=== PATIENT | female | born 1995 | race African-American/Black ===

== ENCOUNTER → 2020-08-02 | Outpatient (CLI) | payer SELFPAY | LOC: M LABSMTC 11:50 | PROVIDERS: ATTEND Pediatrics | DX: Z20.822 Contact with and (suspected) exposure to COVID-19 (principal) ==

== ENCOUNTER → 2020-08-20 | Outpatient (CLI) | payer SELFPAY | LOC: EDSEX → M LABSMTC 13:33 | PROVIDERS: ATTEND Pediatrics | DX: Z20.822 Contact with and (suspected) exposure to COVID-19 (principal) ==

== ENCOUNTER → 2020-09-06 | Outpatient (CLI) | payer SELFPAY | LOC: EDSEX 10:07 → M LABSMTC 10:07 | PROVIDERS: ATTEND Pediatrics | DX: Z20.822 Contact with and (suspected) exposure to COVID-19 (principal) ==

== ENCOUNTER → 2020-09-11 | Outpatient (CLI) | payer SELFPAY | LOC: M LABSMTC 11:07 | PROVIDERS: ATTEND Pediatrics | DX: Z20.822 Contact with and (suspected) exposure to COVID-19 (principal) ==

== ENCOUNTER 2020-11-11 09:42 | Emergency (ER) | payer OTHER, SELFPAY ==
[~2020-11-11] VITALS: Ht 177.8 cm; Wt 88.2 kg
[2020-11-11] MEDS ORDERED: NS 1,000 ML IV ONE ×2 (12:05→13:50)
[2020-11-11 12:34] LABS: BASO % 0.3 % (0.0-1.0); EOS # 0.3 10^3/uL (0.0-0.5); HEMATOCRIT 49.3 % (42.0-52.0); HEMOGLOBIN 15.5 g/dl (13.5-17.5); LYMPH # 1.4 10^3/uL (1.5-5.0); LYMPH % 23.2 % (24.0-44.0); MEAN CORPUSCULAR HEMOGLOBIN 26.6 pg (27.0-33.0); MEAN CORPUSCULAR HGB CONC 31.4 g/dl (32.0-36.5); MEAN CORPUSCULAR VOLUME 84.6 fl (80.0-96.0); MONO # 0.7 10^3/uL (0.0-0.8); MONO % 11.4 % (2.0-8.0); NEUTROPHILS # 3.6 10^3/uL (1.5-8.5); NEUTROPHILS % 59.8 % (36.0-66.0); PLATELET COUNT, AUTOMATED 404 10^3/uL (150-450); RED BLOOD COUNT 5.83 10^6/uL (4.30-6.10)
[2020-11-11 13:12] LABS: ALBUMIN 4.4 GM/DL (3.2-5.2); ALT/SGPT 78 U/L (12-78); AMYLASE 46 U/L (25-115); BILIRUBIN,DIRECT 0.3 MG/DL (0.0-0.2); BILIRUBIN,TOTAL 1.2 MG/DL (0.2-1.0); BLOOD UREA NITROGEN 22 MG/DL (7-18); CALCIUM LEVEL 10.2 MG/DL (8.5-10.1); CARBON DIOXIDE LEVEL 29 MEQ/L (21-32); CHLORIDE LEVEL 103 MEQ/L (98-107); CK-MB VALUE MASS 1.4 NG/ML (<3.6); CPK CREATINE PHOSPHOKINASE 2161 U/L (39-308); CREATININE FOR GFR 1.53 MG/DL (0.70-1.30); GLOMERULAR FILTRATION RATE > 60.0 (>60); GLUCOSE, FASTING 76 MG/DL (70-100); LIPASE 58 U/L (73-393); MB/CK RELATIVE INDEX 0.06 (< OR =4); POTASSIUM SERUM 4.3 MEQ/L (3.5-5.1); SODIUM LEVEL 138 MEQ/L (136-145); TOTAL PROTEIN 8.2 GM/DL (6.4-8.2); TROPONIN I < 0.02 NG/ML (< 0.10)
--- NOTE | 2020-11-11 13:13 | REP ---
INDICATION: RUQ pain, diarrhea. COMPARISON: None. TECHNIQUE: Right upper quadrant sonography. FINDINGS: Scanning through the right upper quadrant of the abdomen demonstrates a normal sized, thin-walled gallbladder without evidence of stone or polyp. Common bile duct is normal measuring 0.5 cm in greatest diameter. Liver size is normal. No pancreatic abnormality is observed. No right renal abnormality is seen. There is no evidence of ascites. The right kidney measures 10.5 x 4.7 x 4.9 cm. There is an echogenic focus in the right lobe of the liver consistent with hemangioma 8 mm in greatest diameter. IMPRESSION: 8 mm hemangioma in the liver. Otherwise negative right upper quadrant sonography.. <Electronically signed by Mariusz Ortega > 11/11/20 [id number]
[2020-11-11] MEDS ORDERED: ISOVUE-370 76% 100ML VIAL As Ordered ONE (13:15)
--- NOTE | 2020-11-11 13:45 | REP ---
INDICATION: diarrhea, diffuse TTP. COMPARISON: None. TECHNIQUE: Helical scanning is acquired and 3 mm axial images re-formatted. Coronal and sagittal MPR images are generated. The CT contrast enhancement dose is 100 mL of intravenous Isovue 370. FINDINGS: Preliminary digital land leasing examiner radiograph is unremarkable. The lung bases are clear. The liver and the spleen are normal in size homogeneous in texture. No adrenal lesion is seen. Pancreas is unremarkable. No abnormality is noted in the gallbladder. The kidneys enhance symmetrically and are morphologically intact. No retroperitoneal mass or adenopathy is observed. A normal appendix is seen in the right lower quadrant. There is fluid content in normal caliber small bowel loops and throughout the large bowel consistent with enteritis. No obstructive lesion is seen. No abdominal wall defect is observed. No pelvic mass or adenopathy is seen. Urinary bladder, seminal vesicles, and prostate are unremarkable. Bone window settings show no bony destructive lesion. IMPRESSION: Question mild enteritis pattern. No evidence of obstruction. Otherwise negative CT study abdomen and pelvis. <Electronically signed by Mariusz Ortega > 11/11/20 [id number]
[2020-11-11 15:40] VITALS: BP 144/75
== END 2020-11-11 15:42 | disposition home or self-care (01) ==
LOC: M ED 09:42
DX: A08.4 Viral intestinal infection, unspecified (principal); B34.8 Other viral infections of unspecified site; G89.29 Other chronic pain; M54.5 Low back pain
CPT/HCPCS: 74177; 76705; 80048; 80076; 82150; 82550; 82553; 83690; 84484; 85025; 87505; 96360; 96361; 99284; Q9967

== ENCOUNTER 2021-06-01 10:08 | Emergency (ER) | payer OTHER ==
[~2021-06-01] VITALS: Ht 177.8 cm; Wt 90.4 kg
--- OUTSIDE RECORDS SUMMARY | 2021-06-01 10:14 | CCD ---
Author Author [facility] Organization [facility] Address Unknown Phone Unavailable Care Team Providers Care Dump Worker Name Role Phone Lai Hendricks MD Unavailable Unavailable Lai Hendricks MD Unavailable Unavailable Lai Hendricks MD Unavailable Unavailable Lai Hendricks MD Unavailable Unavailable Lai Hendricks MD Unavailable Unavailable Lai Hendricks MD Unavailable Unavailable Lai Hendricks MD Unavailable Unavailable Lai Hendricks MD Unavailable Unavailable Lai Hendricks MD Unavailable Unavailable Lai Hendricks MD Unavailable Unavailable Lai Hendricks MD Unavailable Unavailable Lai Hendricks MD Unavailable Unavailable Lai Hendricks MD Unavailable Unavailable Lai Hendricks MD Unavailable Unavailable Lai Hendricks MD Unavailable Unavailable Lai Hendricks MD Unavailable Unavailable Lai Hendricks MD Unavailable Unavailable Lai Hendricks MD Unavailable Unavailable Lai Hendricks MD Unavailable Unavailable Lai Hendricks MD Unavailable Unavailable Lai Hendricks MD Unavailable Unavailable Lai Hendricks MD Unavailable Unavailable Lai Hendricks MD Unavailable Unavailable Lai Hendricks MD Unavailable Unavailable Lai Hendricks MD Unavailable Unavailable Re-disclosure Warning The records that you are about to access may contain information from federally-assisted alcohol or drug abuse programs. If such information is present, then the following federally mandated warning applies: This information has been disclosed to you from records protected by federal confidentiality rules (42 CFR part 2). The federal rules prohibit you from making any further disclosure of this information unless further disclosure is expressly permitted by the written consent of the person to whom it pertains or as otherwise permitted by 42 CFR part 2. A general authorization for the release of medical or other information is NOT sufficient for this purpose. The Federal rules restrict any use of the information to criminally investigate or prosecute any alcohol or drug abuse patient.The records that you are about to access may contain highly sensitive health information, the redisclosure of which is protected by Article 27-F of the [facility] Public Health law. If you continue you may have access to information: Regarding HIV / AIDS; Provided by facilities licensed or operated by the [facility] Office of Mental Health; or Provided by the [facility] Office for People With Developmental Disabilities. If such information is present, then the following [facility] mandated warning applies: This information has been disclosed to you from confidential records which are protected by state law. State law prohibits you from making any further disclosure of this information without the specific written consent of the person to whom it pertains, or as otherwise permitted by law. Any unauthorized further disclosure in violation of state law may result in a fine or penitentiary sentence or both. A general authorization for the release of medical or other information is NOT sufficient authorization for further disc losure. Encounters Encounter Providers Location Date Indications Data Source(s ) Outpatient Attender: Nany Hendricks MD 0 11/10/2020 05:36:10 PM EDT - 11/10/2020 06:15:44 PM EDT [facility] ([facility]) Immunizations Vaccine Date Status Description Data Source(s) COVID-19 VACCINE Pfizer 11/02/2020 12:00:00 AM EDT completed [facility] Vaccine Series Complete: NOThis Data was Submitted to [facility] Via [employer]. Medications No Information Insurance Providers Payer name Policy type / Coverage type Policy ID Covered green party ID Covered green party's relationship to morel Policy Morel Plan Information SANDRA/ [id number] Self 01 [id number] [facility] ACTIVE DUTY [id number] SP [id number] SELF PAY ONLY [id number] SP [id number] SELF PAY ONLY [id number] SP [id number] Problems, Conditions, and Diagnoses No Information Surgeries/Procedures No Information Results ID Date Data Source [id number] 09/06/2020 12:00:00 AM EST [facility] Name Value Range Interpretation Code Description Data Dina rce(s) Supporting Document(s) SARS-CoV-2 (COVID-19) RNA [Presence] in Respiratory specimen by MITA with probe detection Not Detected [facility] This lab was ordered by [facility] and reported by [employer]. ID Date Data Source [id number] 08/20/2020 12:00:00 AM EST [facility] Name Value Range Interpretation Code Description Data Dina rce(s) Supporting Document(s) SARS-CoV-2 (COVID-19) RNA [Presence] in Respiratory specimen by MITA with probe detection Not Detected [facility] This lab was ordered by [facility] and reported by [employer]. ID Date Data Source [id number] 08/02/2020 12:00:00 AM EST [facility] Name Value Range Interpretation Code Description Data Dina rce(s) Supporting Document(s) SARS-CoV-2 (COVID-19) RNA [Presence] in Respiratory specimen by MITA with probe detection Not Detected [facility] This lab was ordered by [facility] and reported by [employer]. Procedure Social History No Information
--- OUTSIDE RECORDS SUMMARY | 2021-06-01 11:37 | CCD ---
Author Author [facility] Organization [facility] Address Unknown Phone Unavailable Care Team Providers Care Customer Service Specialist Name Role Phone Lai Hendricks MD Unavailable [...] is protected by Article 27-F of the [facility] Public Health law. If you continue you may have access to information: Regarding HIV / AIDS; Provided by facilities licensed or operated by the [facility] Office of Mental Health; or Provided by the [facility] Office for People With Developmental Disabilities. If such information is present, then the following [facility] mandated warning applies: This information has been [...] law may result in a fine or detention sentence or both. A general authorization for [...] VACCINE Pfizer 11/02/2020 12:00:00 AM EDT completed [facility] Vaccine Series Complete: NOThis Data was Submitted to [facility] Via [employer]. Medications No Information Insurance Providers Payer name Policy type / Coverage type Policy ID Covered libertarian ID Covered libertarian's relationship to morel Policy Morel Plan Information FERMÍN FLORES/FERMÍN [id number] Self 01 [id number] [facility] ACTIVE DUTY [id number] SP [id number] SELF PAY ONLY [id number] SP [id number] SELF PAY ONLY [id number] SP [id number] Problems, Conditions, and Diagnoses No Information Surgeries/Procedures No Information Results ID Date Data Source [id number] 09/06/2020 12:00:00 AM EST [facility] Name Value Range Interpretation Code Description Data Dina rce(s) Supporting Document(s) SARS-CoV-2 (COVID-19) RNA [Presence] in Respiratory specimen by MITA with probe detection Not Detected [facility] This lab was ordered by [facility] and reported by [employer]. ID Date Data Source [id number] 08/20/2020 12:00:00 AM EST [facility] Name Value Range Interpretation Code Description Data Dina rce(s) Supporting Document(s) SARS-CoV-2 (COVID-19) RNA [Presence] in Respiratory specimen by MITA with probe detection Not Detected [facility] This lab was ordered by [facility] and reported by [employer]. ID Date Data Source [id number] 08/02/2020 12:00:00 AM EST [facility] Name Value Range Interpretation Code Description Data Dina rce(s) Supporting Document(s) SARS-CoV-2 (COVID-19) RNA [Presence] in Respiratory specimen by MITA with probe detection Not Detected [facility] This lab was ordered by [facility] and reported by [employer]. Procedure Social History No Information
--- NOTE | 2021-06-01 12:08 | REP ---
INDICATION: b/l foot pain. COMPARISON: None. TECHNIQUE: Four views each foot FINDINGS: Right foot: There is no fracture, subluxation or sclerotic bone lesion. A subtle lucency in the medial aspect of the distal head of the 1st metatarsal at the medial margin of the 1st MTP joint is noted this appears to be a small erosion. No abnormal soft tissue calcifications. The other joints were all unremarkable. No heel spurs. Left foot: There is a small ossific fragment adjacent to the medial aspect of the distal phalanx at the IP joint of the great toe and with sclerotic smooth margins. This appearance suggest an old avulsion. The other IP joints MTP and tarsal articulations are unremarkable. No acute bony finding. IMPRESSION: 1. Subtle lucency in the medial aspect distal 1st metatarsal head at the 1st MTP joint on the RIGHT suggesting erosion or small bone cyst. There is no abnormal soft tissue calcification present to suggest a gouty tophus. No other findings on the right. 2. Small ossific density along the medial aspect distal phalanx LEFT great toe at the IP joint with smooth sclerotic margins suggesting an old injury. No other findings on the left. <Electronically signed by Frantz Swenson > 06/01/21 [id number]
[2021-06-01 13:16] VITALS: BP 123/56
== END 2021-06-01 13:26 | disposition home or self-care (01) ==
LOC: M ED 10:08
DX: M79.671 Pain in right foot (principal); M79.672 Pain in left foot

== ENCOUNTER 2022-04-28 07:05 | Day surgery (SDC) | payer OTHER ==
[~2022-04-28] VITALS: Ht 180.3 cm; Wt 90.7 kg
[~2022-04-28 07:05] MED LIST: B-12100010 PO; LIDO2SOL17 PO; NAPR-837 PO; PRED20TA PO; VITA100T59 PO
[2022-04-28] MEDS ORDERED: ROCURONIUM BROMIDE 50 MG/5 ML VIAL As Ordered ONE (07:18)
[2022-04-28] MEDS ORDERED: MIDAZOLAM INJ 2MG/2ML VIAL (J2250 PER 1MG) As Ordered ONE (07:33)
[2022-04-28] MEDS ORDERED: fentaNYL 100 MCG/2 ML INJECTION As Ordered ONE (07:34)
[2022-04-28] MEDS ORDERED: LR 1,000 ML IV SCH ×2 (07:55→10:00)
[2022-04-28] MEDS ORDERED: BUPIVACAINE/EPIN 0.5% 30 ML VIAL As Ordered ONE (08:29)
[2022-04-28] MEDS ORDERED: LIDOCAINE 2% 100MG/5ML SDV (FOR ANES.) As Ordered ONE (08:42)
[2022-04-28] MEDS ORDERED: LABETALOL 100MG/20ML VIAL As Ordered ONE (08:59)
[2022-04-28] MEDS ORDERED: ACETAMINOPHEN 1000MG 100ML IV BTL (OFIRMEV) (J0131 PER 10MG) As Ordered ONE (09:00)
[2022-04-28] MEDS ORDERED: SUGAMMADEX SODIUM 500 MG/5 ML VIAL (BRIDION) As Ordered ONE (09:05)
[2022-04-28] MEDS ORDERED: propofoL 200 MG/20 ML VIAL As Ordered ONE ×2 (09:11→10:47)
[2022-04-28] MEDS ORDERED: dexameTHASONE 4 MG/ML 1ML VIAL (J1100 PER 1MG) As Ordered ONE (09:12)
[2022-04-28] MEDS ORDERED: HYDROmorphone HCL 2MG/ML 1ML VIAL As Ordered ONE (09:25)
[2022-04-28] MEDS ORDERED: fentaNYL 100 MCG/2 ML INJECTION IV PRN (10:00)
[2022-04-28] MEDS ORDERED: ONDANSETRON 4MG 2ML VIAL IV PRN (10:00)
[2022-04-28] MEDS ORDERED: oxyCODONE 5MG TAB PO PRN (10:00)
[2022-04-28] MEDS ORDERED: HYDROcodone/APAP LIQUID 7.5-325MG 15ML UDC (LORTAB ELIXIR) PO PRN (10:05)
[2022-04-28 11:30] VITALS: BP 142/78
== END 2022-04-28 12:52 | disposition home or self-care (01) ==
LOC: M SDC 07:05
PROVIDERS: ATTEND Otolaryngology
DX: J35.3 Hypertrophy of tonsils with hypertrophy of adenoids (principal); Z91.013 Allergy to seafood
CPT/HCPCS: 42821; 88302; J0131; J1100; J1170; J2250; J3010

== ENCOUNTER 2022-04-29 18:29 | Emergency (ER) | payer OTHER ==
[~2022-04-29] VITALS: Ht 180.3 cm; Wt 92.4 kg
[2022-04-29 18:30] VITALS: BP 140/73
[2022-04-29] MEDS ORDERED: PERCOCET 5MG/325MG TAB PO ONE (21:40)
[2022-04-29] MEDS ORDERED: MAGIC MOUTHWASH *ED ONLY* 5ML ORAL SYRINGE SS ONE (21:40)
[2022-04-29] MEDS ORDERED: AUGMENTIN ES SUSP POWDER 600MG/5ML 125ML BTL PO ONE ×2 (21:50→23:00)
[2022-04-29] MEDS ORDERED: dexameTHASONE 20MG/5ML VIAL (J1100 PER 1MG) IM ONE (21:50)
== END 2022-04-29 22:58 | disposition home or self-care (01) ==
LOC: M ED 18:29
DX: G89.18 Other acute postprocedural pain (principal); J02.9 Acute pharyngitis, unspecified; R50.9 Fever, unspecified; R13.10 Dysphagia, unspecified; Z91.013 Allergy to seafood
CPT/HCPCS: 96372; 99282; J1100